=== PATIENT | female | born 1990 | race Caucasian/White ===

== ENCOUNTER 2023-10-18 13:57 | Outpatient (CLI) | payer MEDICAID | END 2023-10-18 23:59 | disposition home or self-care (01) | LOC: MRI 13:57 | PROVIDERS: ATTEND Pediatrics Sports Medicine | DX: M25.461 Effusion, right knee (principal); M25.561 Pain in right knee; M54.50 Low back pain, unspecified; M47.816 Spondylosis without myelopathy or radiculopathy, lumbar region; M53.3 Sacrococcygeal disorders, not elsewhere classified | CPT/HCPCS: 73721 ==